=== PATIENT | female | born 1960 | race Two or more races ===

== ENCOUNTER 2022-12-27 08:45 | Day surgery (SDC) | payer MEDICAID ==
[~2022-12-27] VITALS: Ht 167.6 cm; Wt 96.2 kg
[2022-12-27] MEDS ORDERED: LEVO50TA7 PO (08:54)
[2022-12-27] MEDS ORDERED: BENA5TAB9 PO (08:54)
[2022-12-27] MEDS ORDERED: VERAPAMIL 2.5MG/ML INJ 2ML VIAL IV ONE (09:25)
[2022-12-27] MEDS ORDERED: ANGIOMAX 250 MG VIAL IV ONE (09:25)
[2022-12-27] MEDS ORDERED: fentaNYL CITRATE 100 MCG/2 ML VL ONE (09:25)
[2022-12-27] MEDS ORDERED: HEPARIN SODIUM (PORCINE) 5000 UNITS/ML 1ML VIAL ONE (09:25)
[2022-12-27] MEDS ORDERED: SODIUM CHL 0.9% 50 ML ONE (09:26)
[2022-12-27] MEDS ORDERED: MIDAZOLAM HCL 2MG/2ML 2ml VIAL (1mg/ml) ONE (09:26)
[2022-12-27] MEDS ORDERED: IODIXANOL 320MG/ML 100ML BTL IV ONE ×2 (09:26→10:04)
[2022-12-27] MEDS ORDERED: LIDOCAINE 2%HCL (LOCAL ANESTH.) INJ 10ml MDV ONE (09:26)
[2022-12-27] MEDS ORDERED: ASPirin 325 MG TAB ONE (10:12)
[2022-12-27] MEDS ORDERED: TICAGRELOR 90 MG TAB ONE (10:12)
[2022-12-27] MEDS ORDERED: APIX5TAB PO (10:48)
== END 2022-12-27 14:59 | disposition home or self-care (01) ==
LOC: CATH 08:45
PROVIDERS: ATTEND Internal Medicine
DX: I25.10 Atherosclerotic heart disease of native coronary artery without angina pectoris (principal); Z20.822 Contact with and (suspected) exposure to COVID-19
CPT/HCPCS: 92920; 93005; 93458; C1769; C1887; C1894; J0583; J1644; J2001; J2250; J3010; Q9967; U0003; 99152; 99153